=== PATIENT | female | born 1995 ===

== ENCOUNTER 2017-03-14 01:23 | Emergency (ER) | payer MEDICAID, OTHER ==
[2017-03-14 01:26] VITALS: BMI 25.6
[2017-03-14 01:44] VITALS: RESP 18; TEMP 98.4
--- NOTE | 2017-03-14 01:44 | ED PDOC ---
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 She notes that she has been experiencing this pain/ inflammation to both breasts for about 2 months. The patient describes the pain to the right breast as sharp. The patient states that she had a biopsy done 07/2016. However, she has not been following up regarding her symptoms because she no longer has insurance. She denies fevers, chills, headache, dizziness, chest pain, shortness of breath, dyspnea on exertion, cough, abdominal pain, nausea, vomiting, diarrhea, back pain, neck pain, urinary/bowel changes, or any other complaint. Time/Duration: Other (2 months) Symptom Onset: Sudden Symptom Course: Unchanged Activities at Onset: Rest, Light Context: Home Past Medical History - Provider Review Nursing Documentation Reviewed: Yes - Past History Past History: No Previous - Infectious Disease Hx of Infectious Diseases: None - Tetanus Immunization Tetanus Immunization: Up to Date - Past Medical History Past Medical History: No Previous - Cardiac Hx Cardiac Disorders: No - Pulmonary Hx Respiratory Disorders: No - Neurological Hx Neurological Disorder: No - HEENT Hx HEENT Disorder: Yes Other/Comment: many throat infections over the past years - Renal Hx Renal Disorder: No - Endocrine/Metabolic Hx Endocrine Disorders: No - Hematological/Oncological Hx Blood Disorders: No - Integumentary Hx Dermatological Disorder: No - Musculoskeletal/Rheumatological Hx Musculoskeletal Disorders: No - Gastrointestinal Hx Gastrointestinal Disorders: No - Genitourinary/Gynecological Hx Genitourinary Disorders: No - Psychiatric Hx Psychophysiologic Disorder: No Hx Depression: No Hx Substance Use: No - Surgical History Hx Appendectomy: Yes Hx Tonsillectomy: Yes - Anesthesia Hx Anesthesia: Yes Hx Anesthesia Reactions: No Hx Malignant Hyperthermia: No - Suicidal Assessment Feels Threatened In Home Enviroment: No Family/Social History - Physician Review Nursing Documentation Reviewed: Yes Family/Social History: No Known Family HX Smoking Status: Never Smoked Hx Alcohol Use: No Hx Substance Use: No Hx Substance Use Treatment: No Allergies/Home Meds Allergies/Adverse Reactions: Allergies No Known Allergies Allergy (Verified 01/22/12 12:50) Home Medications: Home Meds Medication Instructions Recorded Confirmed No Known Home Med 03/14/17 03/14/17 Review of Systems - Physician Review All systems were reviewed & negative as marked: Yes - Review of Systems Constitutional: absent: Fevers, Night Sweats Respiratory: absent: SOB, Cough Cardiovascular: absent: Chest Pain, CERVANTES Gastrointestinal: absent: Abdominal Pain, Stool Changes, Diarrhea, Nausea, Vomiting Genitourinary Female: absent: Urine Output Changes Musculoskeletal: absent: Back Pain, Neck Pain Neurological: absent: Headache, Dizziness Physical Exam - Physical Exam Narrative Physical Exam (Text): 03/14/17 02:06: Physical exam was deferred to the [facility]. Vital Signs Reviewed: Yes Vital Signs Temp Pulse Resp BP Pulse Ox 03/14/17 01:32 98.4 F 109 H 18 137/98 H 99 Temperature: Afebrile Blood Pressure: Hypertensive Pulse: Tachycardic Respiratory Rate: Normal Appearance: Positive for: Well-Appearing, Non-Toxic, Comfortable Pain Distress: None Mental Status: Positive for: Alert and Oriented X 3 Medical Decision Making ED Course and Treatment: 03/14/17 02:07 Impression: A 21 year old female presents to the emergency department complaining of 2 month duration breast pain and inflammation. Plan: -- Reassess and disposition Progress Notes: 03/14/17 02:07: Physical exam was deferred to the [facility]. - PA / DIRECTOR OF MANAGED CARE / Resident Statement / has reviewed & agrees with the documentation as recorded. - Scribe Statement The provider has reviewed the documentation as recorded by the Keshia Doyle Provider Scribe Attestation: All medical record entries made by the Keshia were at my direction and personally dictated by me. I have reviewed the chart and agree that the record accurately reflects my personal performance of the history, physical exam, medical decision making, and the department course for this patient. I have also personally directed, reviewed, and agree with the discharge instructions and disposition. Disposition/Present on Arrival - Present on Arrival Any Indicators Present on Arrival: No History of DVT/PE: No History of Uncontrolled Diabetes: No Urinary Catheter: No History of Decub. Ulcer: No History Surgical Site Infection Following: None - Disposition Have Diagnosis and Disposition been Completed?: Yes Diagnosis: Breast pain, left, Breast pain, right Disposition: HOME/ ROUTINE Disposition Time: :45 Patient Plan: Discharge Patient Problems: Current Active Problems Problem Status Onset Breast pain, left Acute Breast pain, right Acute Condition: GOOD Discharge Instructions (ExitCare): Breast Self Exam for Women (ED), Breast Mass (ED) Additional Instructions: Jeanette- I am so sorry that I have no resources to offer you at this hour. Please call the family welfare social work professor department here tomorrow and let them know that I reffrred you to the womens health services here at [facility] and that I was hoping that you could get stone care for tonights visit and subsequent visits upstairs for this problem with your breasts. Return to us if necessary Best- Dr. Maximus Quiroz Referrals: Jesse Cunha DO [Doctor Osteopathy] - Follow up with primary Patel Rinaldi MD [Non-Staff] - Follow up with primary Tegan Chavez MD [Medical Doctor] - Follow up with primary [facility] [Provider Group] - Follow up with primary
[2017-03-14 02:34] VITALS: BP 137/86; PULSE 86; O2SAT 100
== END 2017-03-14 02:33 | disposition home or self-care (01) ==
LOC: ED 01:23
DX: N64.4 Mastodynia (principal)

== ENCOUNTER 2017-04-25 14:15 | Emergency (ER) | payer OTHER ==
[2017-04-25 14:44] VITALS: TEMP 98.4; BMI 27.9
[2017-04-25] MEDS ORDERED: Albuterol 0.083% Inhal Sol (2.5 mg/3 mL) UD INH STA ×3 (14:51→16:01)
[2017-04-25] MEDS ORDERED: Promethazine DM 6.25 mg-15 mg/5 ml Syrup PO STA (14:51)
--- NOTE | 2017-04-25 15:59 | ED PDOC ---
Arrival/HPI - General Chief Complaint: Shortness Of Breath Time Seen by Provider: 04/25/17 14:46 Historian: Patient - History of Present Illness Narrative History of Present Illness (Text): 04/25/17 15:50 21yo female with no PMhx present with one week history of mildly productive cough. States she woke up with wheezing this morning. Also complain of nasal congestion. States she did not take any medication. Denies fever, chills, chest pain, sick contact, diaphoresis, LE edema, calf pain, recent travel/surgery. Past Medical History - Provider Review Nursing Documentation Reviewed: Yes - Past History Past History: No Previous - Infectious Disease Hx of Infectious Diseases: None - Tetanus Immunization Tetanus Immunization: Up to Date - Past Medical History Past Medical History: No Previous - Cardiac Hx Cardiac Disorders: No - Pulmonary Hx Respiratory Disorders: No - Neurological Hx Neurological Disorder: No - HEENT Hx HEENT Disorder: Yes Other/Comment: many throat infections over the past years - Renal Hx Renal Disorder: No - Endocrine/Metabolic Hx Endocrine Disorders: No - Hematological/Oncological Hx Blood Disorders: No - Integumentary Hx Dermatological Disorder: No - Musculoskeletal/Rheumatological Hx Musculoskeletal Disorders: No - Gastrointestinal Hx Gastrointestinal Disorders: No - Genitourinary/Gynecological Hx Genitourinary Disorders: No - Psychiatric Hx Psychophysiologic Disorder: No Hx Depression: No Hx Substance Use: No - Surgical History Hx Appendectomy: Yes Hx Tonsillectomy: Yes - Anesthesia Hx Anesthesia: Yes Hx Anesthesia Reactions: No Hx Malignant Hyperthermia: No - Suicidal Assessment Feels Threatened In Home Enviroment: No Family/Social History - Physician Review Nursing Documentation Reviewed: Yes Family/Social History: Unknown Family HX Smoking Status: Never Smoked Hx Alcohol Use: No Hx Substance Use: No Hx Substance Use Treatment: No Allergies/Home Meds Allergies/Adverse Reactions: Allergies No Known Allergies Allergy (Verified 01/22/12 12:50) Review of Systems - Physician Review All systems were reviewed & negative as marked: Yes - Review of Systems Constitutional: Normal Eyes: Normal ENT: Normal Respiratory: SOB, Cough, Sputum. absent: Wheezing Cardiovascular: Normal Gastrointestinal: Normal Genitourinary Female: Normal Musculoskeletal: Normal Skin: Normal Neurological: Normal Endocrine: Normal Hemo/Lymphatic: Normal Psychiatric: Normal Physical Exam Vital Signs Reviewed: Yes Vital Signs Temp Pulse Resp BP Pulse Ox 04/25/17 18:24 84 18 112/72 97 04/25/17 17:01 86 H 121/55 L 18 L 04/25/17 14:15 98.4 F 87 18 129/100 H 97 Temperature: Afebrile Blood Pressure: Normal Pulse: Regular Respiratory Rate: Normal Appearance: Positive for: Well-Appearing, Non-Toxic, Comfortable Pain Distress: None Mental Status: Positive for: Alert and Oriented X 3 - Systems Exam Head: Present: Atraumatic, Normocephalic Pupils: Present: PERRL Extroacular Muscles: Present: EOMI Conjunctiva: Present: Normal Mouth: Present: Moist Mucous Membranes Neck: Present: Normal Range of Motion Respiratory/Chest: Present: Clear to Auscultation, Good Air Exchange. No: Respiratory Distress, Accessory Muscle Use, Wheezes, Decreased Breath Sounds, Rales, Retracting, Rhonchi, Tachypneic, Tender to Palpation Cardiovascular: Present: Regular Rate and Rhythm, Normal S1, S2. No: Murmurs Abdomen: Present: Normal Bowel Sounds. No: Tenderness, Distention, Peritoneal Signs Back: Present: Normal Inspection Upper Extremity: Present: Normal Inspection. No: Cyanosis, Edema Lower Extremity: Present: Normal Inspection. No: Edema Neurological: Present: GCS=15, CN II-XII Intact, Speech Normal Skin: Present: Warm, Dry, Normal Color. No: Rashes Psychiatric: Present: Alert, Oriented x 3, Normal Insight, Normal Concentration Medical Decision Making ED Course and Treatment: 04/25/17 18:07 CXR NAD PT was hemodynamically stable in ED, not hypoxic. Her lung was CTA b/l. She was given Albuterol and Zpack in ED . Referred to her PMD. - RAD Interpretation Radiology Orders: 04/25/17 14:51 CHEST TWO VIEWS (PA/LAT) [RAD] Stat - Medication Orders Current Medication Orders: Discontinued Medications Albuterol Sulfate (Albuterol 0.083% Inhal Audelia (2.5 Mg/3 Ml) Ud) 2.5 mg INH STAT STA Stop: 04/25/17 14:52 Last Admin: 04/25/17 15:41 Dose: 2.5 mg Albuterol Sulfate (Albuterol 0.083% Inhal Audelia (2.5 Mg/3 Ml) Ud) 2.5 mg INH STAT STA Stop: 04/25/17 16:00 Last Admin: 04/25/17 16:07 Dose: 2.5 mg Albuterol Sulfate (Albuterol 0.083% Inhal Audelia (2.5 Mg/3 Ml) Ud) 2.5 mg INH STAT STA Stop: 04/25/17 16:02 Last Admin: 04/25/17 16:20 Dose: 2.5 mg Azithromycin (Zithromax) 500 mg PO STAT STA PRN Reason: Protocol Stop: 04/25/17 18:09 Last Admin: 04/25/17 18:20 Dose: 500 mg Promethazine HCl/Dextromethorphan (Phenergan Dm Syrup) 5 ml PO ONCE STA Stop: 04/25/17 14:52 Last Admin: 04/25/17 15:40 Dose: 5 ml Disposition/Present on Arrival - Present on Arrival Any Indicators Present on Arrival: No History of DVT/PE: No History of Uncontrolled Diabetes: No Urinary Catheter: No History of Decub. Ulcer: No History Surgical Site Infection Following: None - Disposition Have Diagnosis and Disposition been Completed?: Yes Diagnosis: Cough Disposition: HOME/ ROUTINE Disposition Time: 18:10 Patient Plan: Discharge Condition: STABLE Discharge Instructions (ExitCare): Cough, Adult (DC) Additional Instructions: Follow up with your doctor Return to ED for any new or worsening symptoms Prescriptions: Albuterol HFA [Ventolin HFA 90 mcg/actuation (8 g)] 2 puff IH [id number] #1 puff Azithromycin [Zithromax] 250 mg PO DAILY #4 tab Benzonatate [Tessalon Perle] 100 mg PO TID #20 capsule Referrals: Justin Elliott, [Primary Care Provider] - Follow up with primary [facility] [place]] - Follow up with primary Forms: [employer] ([employer])
--- NOTE | 2017-04-25 18:02 | RAD ---
HISTORY: cough COMPARISON: 04/20/2014. TECHNIQUE: Chest PA and lateral FINDINGS: LUNGS: No active pulmonary disease. PLEURA: No significant pleural effusion identified. No pneumothorax apparent. CARDIOVASCULAR: Normal. OSSEOUS STRUCTURES: No significant abnormalities. VISUALIZED UPPER ABDOMEN: Normal. OTHER FINDINGS: None. IMPRESSION: No active disease. No significant interval change compared to the prior examination(s).
[2017-04-25 18:25] VITALS: BP 112/72; PULSE 84; RESP 18; O2SAT 97
== END 2017-04-25 18:26 | disposition home or self-care (01) ==
LOC: ED 14:15
DX: R05 Cough (principal)